=== PATIENT | female | born 1930 | race Caucasian/White ===

== ENCOUNTER 2018-08-03 13:47 | Emergency (ER) | payer OTHER ==
[~2018-08-03] VITALS: Ht 160 cm; Wt 59.0 kg
[2018-08-03 14:59] LABS: Basophils # (auto) 0 uL; Basophils % (auto) 0.2 % (0.0-2.0); Eosinophils # (auto) 0 uL; Eosinophils % (auto) 0.3 % (0.0-7.0); Hematocrit 36.7 % (36.0-46.0); Hemoglobin 12.1 g/dL (12.2-16.2); Lymphocytes # (auto) 1.2 uL; Lymphocytes % (auto) 11.5 % (10.0-50.0); Mean Corpuscular Hemoglobin 29.3 pg (28.0-32.0); Mean Corpuscular Volume 88.7 fL (80.0-100.0); Monocytes # (auto) 0.5 uL; Monocytes % (auto) 4.4 % (0.0-12.0); Neutrophils # (auto) 8.9 uL; Neutrophils % (auto) 83.6 % (37.0-80.0); Nucleated Red Blood Cells % 0.1 %; Platelet Count (auto) 269 10^3/uL (140-450); Red Blood Cells 4.14 10^6/uL (4.0-5.20); Red Cell Distribution Width 14.5 % (11.8-14.3); White Blood Cell 10.6 10^3/uL (4.4-10.8)
[2018-08-03 15:00] LABS: Albumin 3.8 g/dL (3.4-5.0); Anion Gap 9 (5-15); Calcium 9.8 mg/dL (8.5-10.1); Carbon Dioxide 19 mmol/L (21-32); Chloride 105 mmol/L (98-107); Glucose 107 mg/dL (74-106); Magnesium 2.9 mg/dL (1.6-2.6); Sodium 133 mmol/L (136-145)
[2018-08-03 15:08] LABS: Alanine Aminotransferase 23 U/L (13-56); Alkaline Phosphatase 75 U/L (45-117); Aspartate Aminotransferase 17 U/L (15-37); BUN/Creatinine Ratio 21.4; Bilirubin, Total 0.3 mg/dL (0.2-1.0); GFR African American 13 mL/min; GFR Non-African American 10 mL/min; Total Protein 7.4 g/dL (6.4-8.2)
[2018-08-03 15:24] LABS: Blood Urea Nitrogen 91 mg/dL (7-18); Potassium 6.8 mmol/L (3.5-5.1)
[2018-08-03 15:30] LABS: INR 0.95 (0.9-1.15); Partial Thromboplastin Time 22.6 sec (23.78-33.04); Prothrombin Time 10.2 sec (9.27-12.13)
[2018-08-03] MEDS ORDERED: DEXTROSE (50%) 50ML SYRG IV ONE ×2 (15:30→18:15)
[2018-08-03] MEDS ORDERED: SODIUM BICARBONATE 8.4% INJ 50ML SYRINGE IV ONE (15:30)
[2018-08-03] MEDS ORDERED: SODIUM CHLORIDE 0.9% 1,000 ML IV ONE (15:30)
[2018-08-03] MEDS ORDERED: InsuLIN REG 1unit/0.01ml Soln (100units/ml) IV ONE (15:30)
[2018-08-03] MEDS ORDERED: CALCIUM GLUC 4.65meq/50ml D5AE 50 ML IV ONE (15:30)
[2018-08-03 16:20] LABS: Urine WBC None Seen /hpf (0 - 5)
[2018-08-03 16:33] LABS: Urine Bacteria NONE SEEN /hpf (None Seen); Urine Blood Negative /uL (Negative); Urine Hyaline Cast MOD /lpf (0 - 2)
[2018-08-03 17:55] LABS: Anion Gap 7 (5-15); BUN/Creatinine Ratio 21.5; Calcium 9.4 mg/dL (8.5-10.1); Carbon Dioxide 17 mmol/L (21-32); Chloride 114 mmol/L (98-107); GFR African American 14 mL/min; GFR Non-African American 11 mL/min; Sodium 138 mmol/L (136-145)
[2018-08-03 17:57] LABS: Potassium 5.6 mmol/L (3.5-5.1)
[2018-08-03 17:58] LABS: Blood Urea Nitrogen 85 mg/dL (7-18); Glucose 32 mg/dL (74-106)
[2018-08-03 18:32] VITALS: BP 104/45
== END 2018-08-03 17:39 | disposition home or self-care (01) ==
LOC: ER 13:47 → EDBD 13:47 → ER 17:39
DX: S72.092A Other fracture of head and neck of left femur, initial encounter for closed fracture (principal); E87.5 Hyperkalemia; G30.1 Alzheimer's disease with late onset; F03.90 Unspecified dementia, unspecified severity, without behavioral disturbance, psychotic disturbance, mood disturbance, and anxiety; I12.9 Hypertensive chronic kidney disease with stage 1 through stage 4 chronic kidney disease, or unspecified chronic kidney disease; N18.9 Chronic kidney disease, unspecified; Z90.710 Acquired absence of both cervix and uterus; Z90.49 Acquired absence of other specified parts of digestive tract; Z90.89 Acquired absence of other organs; W19.XXXA Unspecified fall, initial encounter; Y93.89 Activity, other specified; Y99.8 Other external cause status; Y92.89 Other specified places as the place of occurrence of the external cause
CPT/HCPCS: 36415; 70450; 71045; 72192; 73552; 80048; 80053; 81001; 82962; 83735; 84484; 85025; 85610; 85730; 93005; 94761; 96365; 96375; 96376; 99285; J0610; J1815; J7030; J7042